=== PATIENT | male | born 1970 | race Caucasian/White ===

== ENCOUNTER 2018-10-28 16:14 | Observation (INO) ==
[2018-10-28 17:38] LABS: Basophils # 0.1 K/mcL (0.0-0.2); Basophils % 0.8 %; Eosinophils # 0.6 K/mcL (0.0-0.6); Eosinophils % 4.4 %; Hematocrit 45.9 % (37.5-50.1); Hemoglobin 15.6 g/dL (12.9-16.9); Immature Granulocytes % 0.4 % (0-4); Lymphocytes # 3.2 K/mcL (0.6-4.6); Lymphocytes % 25.4 %; Mean Corpuscular Hemoglobin 28.9 pg (28.0-33.3); Mean Corpuscular Volume 85.2 fL (83.0-100.0); Mean Platelet Volume 9.5 fL (9.4-12.4); Monocytes # 0.8 K/mcL (0.0-1.3); Monocytes % 6.7 %; Neutrophils # 7.7 K/mcL (1.6-8.9); Platelet Count 364 K/mcL (140-400); Red Blood Count 5.39 M/mcL (4.19-5.50); Red Cell Distribution Width 12.5 % (11.5-14.5); Segmented Neutrophils % 62.3 %
--- NOTE | 2018-10-28 17:41 | Emergency Department Note ---
Addendum entered and electronically signed by Mike Serrano DO 10/28/18 20:00: Patient did convert to normal sinus rhythm. Rate of 84. Normal axis. QTC of 389. Original Note: Disposition Clinical Impression: Atrial fibrillation with RVR, Renal insufficiency Disposition: Admitted As Inpatient Condition: Fair Referrals: Kailyn Goldberg CNP [Primary Care Provider] - Forms: ED Satisfaction Letter Time of Disposition: 18:28 Arrhythmia/Palpitations HPI - General Chief Complaint: ED Arrhythmia/Palpitations Stated Complaint: AFIB Time Seen by Provider: 10/28/18 17:31 Source: patient Mode of arrival: ambulatory Limitations: no limitations Nursing Notes Reviewed: Yes Vital Signs Reviewed: Yes - History of Present Illness HPI Narrative: 48-year-old male since for evaluation of A. fib. Patient states he has had intermittent palpitations which were PVCs over the past several months. States it became more persistent today around 1400. Denies any chest pain. Denies any nausea vomiting. Patient states he also had a productive cough over the past 2 months. Patient denies any fevers. Denies any abdominal pain. 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 Patient denies history of DVT or PE. Does note some lower extremity edema. No notable history of heart failure. No history thyroid or alcohol use. - Related Data Home Medications Medication Instructions Recorded Confirmed No Known Home Drugs 10/28/18 10/28/18 Allergies Allergy/AdvReac Type Severity Reaction Status Date / Time Penicillins Allergy Rash Verified 10/28/18 15:27 All systems ED: reviewed and negative except as stated. Constitutional: Denies: fever Cardiovascular: Denies: chest pain Respiratory: Reports: cough. Denies: dyspnea Gastrointestinal: Denies: abdominal pain, nausea, vomiting Past Medical History - Past Medical History Source: patient Medical history: Reports: no medical history Psychiatric history: Reports: no psych history - Social History Smoking Status: Never smoker Smokeless Tobacco Status: No Alcohol use: Reports: none Drug use: Reports: none Physical Exam - General Limitations: no limitations General appearance: alert, in no apparent distress, obese - Head Head exam: atraumatic, normocephalic, normal inspection - Eye Eye exam: Present: normal appearance, PERRL, EOMI - ENT ENT exam: normal exam, normal oropharynx, mucous membranes moist - Neck Neck exam: Present: normal inspection - Chest Chest inspection: Present: normal inspection - Respiratory Respiratory exam: Present: normal lung sounds bilaterally. Absent: respiratory distress - Cardiovascular Cardiovascular exam: Present: regular rate, normal rhythm. Absent: systolic murmur - Abdominal Exam Abdominal exam: Present: soft, Non-Tender. Absent: guarding, rebound - Extremities Exam Extremities exam: Present: normal inspection. Absent: pedal edema - Neurological Exam Neurological exam: Present: alert, oriented X3 - Skin Skin exam: Present: warm, dry, intact, normal color Course Course Narrative: Patient will get basic labs chest x-ray rate control with Cardizem. Patient has no recent echo. - Reevaluation(s) Reevaluation #1: Patient updated on plan of care. Patient's Cardizem drip at 5. Patient's heart rate 110. Patient's agreeable with admission. Time: 18:25 Vital Signs Temperature 98.6 F 10/28/18 16:37 Pulse Rate 83 10/28/18 16:37 Respiratory Rate 16 10/28/18 16:37 Blood Pressure 156/120 10/28/18 16:37 O2 Sat by Pulse Oximetry 96 10/28/18 16:37 Temperature 98.6 F 10/28/18 16:37 Pulse Rate 83 10/28/18 16:37 Respiratory Rate 16 10/28/18 16:37 Blood Pressure 156/120 10/28/18 16:37 O2 Sat by Pulse Oximetry 96 10/28/18 16:37 Oxygen Delivery Oxygen Delivery Room Air Arrhythmia/Palpitations - MDM Narrative Medical decision making narrative: Patient presented for concerns of palpitations found to be in A. fib. No formal diagnosis of A. fib. Patient was A. fib RVR started on Cardizem. Patient's d- dimer is negative. Electrolytes reviewed show some renal insufficiency elevated from past values. Patient will be admitted to hospital service for further evaluation and monitoring. Patient's Roverto Vasc is low patient was given an aspirin. - Lab Data Lab results reviewed: Yes I reviewed the patient's lab results. Result diagrams: 10/28/18 17:20 10/28/18 17:20 Lab Results 10/28/18 10/28/18 10/28/18 Range/Units 15:43 17:20 17:20 WBC 12.4 H (4.3-11.1) K/mcL RBC 5.39 (4.19-5.50) M/mcL Hgb 15.6 (12.9-16.9) g/dL Hct 45.9 (37.5-50.1) % MCV 85.2 (83.0-100.0) fL MCH 28.9 (28.0-33.3) pg MCHC 34.0 (31.6-35.5) g/dL RDW 12.5 (11.5-14.5) % Plt Count 364 (140-400) K/mcL MPV 9.5 (9.4-12.4) fL Immature Gran % 0.4 (0-4) % Seg Neutrophils % 62.3 % Lymphocytes % 25.4 % Monocytes % 6.7 % Eosinophils % 4.4 % Basophils % 0.8 % Neutrophils # 7.7 (1.6-8.9) K/mcL Lymphocytes # 3.2 (0.6-4.6) K/mcL Monocytes # 0.8 (0.0-1.3) K/mcL Eosinophils # 0.6 (0.0-0.6) K/mcL Basophils # 0.1 (0.0-0.2) K/mcL PT 11.0 (9.4-12.1) Seconds INR 1.0 D-Dimer 379 (0-500) ng/mLFEU Sodium 139 (136-145) mEq/L Potassium 4.1 (3.5-5.1) mEq/L Chloride 106 (98-107) mEq/L Carbon Dioxide 25 (23-29) mEq/L BUN 22 H (6-20) mg/dL Creatinine 1.38 H (0.70-1.30) mg/dL Est GFR ( Amer) > 60 (> 60) Est GFR (Non-Af Amer) 55 L (> 60) BUN/Creatinine Ratio 16 (6-26) Glucose 120 H (70-105) mg/dL Calculated Osmolality 293 (280-300) Calcium 10.3 (8.6-10.3) mg/dL Phosphorus 3.5 (2.7-4.5) mg/dL Magnesium 2.0 (1.6-2.6) mg/dL Troponin I < 0.03 (< 0.04) ng/mL B-Natriuretic Peptide (Less than 100) pg/mL TSH 3.120 (0.340-5.600) mcIU/mL 10/28/18 Range/Units 17:20 WBC (4.3-11.1) K/mcL RBC (4.19-5.50) M/mcL Hgb (12.9-16.9) g/dL Hct (37.5-50.1) % MCV (83.0-100.0) fL MCH (28.0-33.3) pg MCHC (31.6-35.5) g/dL RDW (11.5-14.5) % Plt Count (140-400) K/mcL MPV (9.4-12.4) fL Immature Gran % (0-4) % Seg Neutrophils % % Lymphocytes % % Monocytes % % Eosinophils % % Basophils % % Neutrophils # (1.6-8.9) K/mcL Lymphocytes # (0.6-4.6) K/mcL Monocytes # (0.0-1.3) K/mcL Eosinophils # (0.0-0.6) K/mcL Basophils # (0.0-0.2) K/mcL PT (9.4-12.1) Seconds INR D-Dimer (0-500) ng/mLFEU Sodium (136-145) mEq/L Potassium (3.5-5.1) mEq/L Chloride (98-107) mEq/L Carbon Dioxide (23-29) mEq/L BUN (6-20) mg/dL Creatinine (0.70-1.30) mg/dL Est GFR ( Amer) (> 60) Est GFR (Non-Af Amer) (> 60) BUN/Creatinine Ratio (6-26) Glucose (70-105) mg/dL Calculated Osmolality (280-300) Calcium (8.6-10.3) mg/dL Phosphorus (2.7-4.5) mg/dL Magnesium (1.6-2.6) mg/dL Troponin I (< 0.04) ng/mL B-Natriuretic Peptide 41 (Less than 100) pg/mL TSH (0.340-5.600) mcIU/mL - Radiology Data Radiology results reviewed: Yes I reviewed the patient's radiology results. Chest X-Ray 10/28/18 17:06 IMPRESSION: No acute cardiopulmonary process D/ / 10/28/2018 18:18:50 Gomez Badillo MD / [facility] Interpreting Provider: Gomez Badillo MD - EKG Data EKG attestation: Yes I reviewed and interpreted this EKG. Rate: tachycardia Rhythm: A.Fib Flushing/QRS: normal T wave inversions noted in: III, v1 Interpretation: no acute changes, nonspecific ST-T wave changes S.B.A.R. - Amina.Asa.Josh Situation: Demographics Background: Presenting Complaint Assessment: Vital Signs, Course and respsone to treatment, Patient/Family Expectation Recommendation: Barrier(s) to disposition, Recommendation based on pending studies, treatments, or consults S.B.A.RTobi Report Given to: Dr. Khoi Mojica Repor Time: 18:44
--- NOTE | 2018-10-28 17:49 | Emergency Department Note ---
Disposition Clinical Impression: Atrial fibrillation with RVR Disposition: Admitted As Inpatient Forms: ED Satisfaction Letter General Adult HPI - General Chief complaint: ED Arrhythmia/Palpitations Stated complaint: AFIB Time Seen by Provider: 10/28/18 17:31 Source: patient Mode of arrival: ambulatory Limitations: no limitations Nursing Notes Reviewed: Yes Vital Signs Reviewed: Yes - History of Present Illness HPI Narrative: Attestation note ED attending note I examined this patient and my medical decision-making was reviewed with the emergency medicine resident Dr. Mike Serrano . I agree with the documented findings, disposition and treatment plan as described except to the extent set forth below. Briefly: 48-year-old male smoker jeanette this had just palpitations in the past but no formal workup for the past 90 minutes after he spoke with family member was not a stressful conversation was an argument. Patient just a little bit tired feels his chest pounding. Smoking edema chest is clear EKG shows A. fib with RVR at [address]-T changes no acute ischemic changes note d. Patient is screening labs patient will undergo chemical cardioversion be admitted for A. fib with RVR new-onset. Pain Scale: 0 - Related Data Allergies Allergy/AdvReac Type Severity Reaction Status Date / Time Penicillins Allergy Rash Verified 10/28/18 15:27 Past Medical History - Past Medical History Medical history: Reports: no medical history Psychiatric history: Reports: no psych history - Social History Smoking Status: Never smoker Smokeless Tobacco Status: No Alcohol use: Reports: none Drug use: Reports: none Physical Exam - General Limitations: no limitations General appearance: alert, in no apparent distress Course Vital Signs Temperature 98.6 F 10/28/18 16:37 Pulse Rate 83 10/28/18 16:37 Respiratory Rate 16 10/28/18 16:37 Blood Pressure 156/120 10/28/18 16:37 O2 Sat by Pulse Oximetry 96 10/28/18 16:37 Temperature 98.6 F 10/28/18 16:37 Pulse Rate 83 10/28/18 16:37 Respiratory Rate 16 10/28/18 16:37 Blood Pressure 156/120 10/28/18 16:37 O2 Sat by Pulse Oximetry 96 10/28/18 16:37 Oxygen Delivery Oxygen Delivery Room Air Medical Decision Making - Lab Data Result diagrams: 10/28/18 17:20 Lab Results 10/28/18 Range/Units 17:20 WBC 12.4 H (4.3-11.1) K/mcL RBC 5.39 (4.19-5.50) M/mcL Hgb 15.6 (12.9-16.9) g/dL Hct 45.9 (37.5-50.1) % MCV 85.2 (83.0-100.0) fL MCH 28.9 (28.0-33.3) pg MCHC 34.0 (31.6-35.5) g/dL RDW 12.5 (11.5-14.5) % Plt Count 364 (140-400) K/mcL MPV 9.5 (9.4-12.4) fL Immature Gran % 0.4 (0-4) % Seg Neutrophils % 62.3 % Lymphocytes % 25.4 % Monocytes % 6.7 % Eosinophils % 4.4 % Basophils % 0.8 % Neutrophils # 7.7 (1.6-8.9) K/mcL Lymphocytes # 3.2 (0.6-4.6) K/mcL Monocytes # 0.8 (0.0-1.3) K/mcL Eosinophils # 0.6 (0.0-0.6) K/mcL Basophils # 0.1 (0.0-0.2) K/mcL
[2018-10-28] MEDS ORDERED: Aspirin 325 MG TABLET PO ONE (17:54)
[2018-10-28 17:59] LABS: BUN/Creatinine Ratio 16 (6-26); Blood Urea Nitrogen 22 mg/dL (6-20); Calcium 10.3 mg/dL (8.6-10.3); Carbon Dioxide 25 mEq/L (23-29); Chloride 106 mEq/L (98-107); Glucose 120 mg/dL (70-105); Osmolality,Calculated 293 (280-300); Potassium 4.1 mEq/L (3.5-5.1); Sodium 139 mEq/L (136-145); Troponin I < 0.03 ng/mL (< 0.04); eGFR For Non-African Americans 55 (> 60)
[2018-10-28 18:06] LABS: Phosphorous 3.5 mg/dL (2.7-4.5)
[2018-10-28] MEDS ORDERED: Famotidine 20 MG TABLET PO PRN (21:07)
[2018-10-28] MEDS ORDERED: Naloxone 0.4 MG/ML INJ IVP PRN (21:07)
[2018-10-28] MEDS ORDERED: *HR* Heparin 5,000 UNIT/ML VIAL IVP PRN ×2 (21:07)
[2018-10-28] MEDS ORDERED: Acetaminophen 325 MG TABLET PO PRN (21:07)
[2018-10-28] MEDS ORDERED: *HR* Heparin 5,000 UNIT/ML VIAL IVP ONE (21:07)
[2018-10-28] MEDS ORDERED: Heparin 25,000 UNIT/500 ML D5W 25,000 UNIT/500 ML BAG IVC SCH (21:15)
--- NOTE | 2018-10-28 21:35 | Internal Med History&Physical ---
Date of Encounter: 10/28/18 Time of Encounter: 20:25 Internal Medicine - H&P: HPI Chief complaint: plapitations/fluttering Admitted From: Emergency Dept Plans for Post Hospital Care: Home History of present illness: Mr. Davenport is a 48 year old male who presents with a sudden onset of fluttering and palpitations in his chest earlier today. Symptoms lasted over an hour, which prompted him to go the urgent care. He was then referred to ER for new onset atrial fibrillation with rapid ventricular response. In ER, patient was given Cardizem bolus and then drip with conversion back to sinus rhythm. He is now asymptomatic and feels "great". Because of the new onset atrial fibrillation and need for further workup, he was admitted to hospitalist service. Upon my assessment of the patient, patient is asymptomatic. He denies any chest pain or shortness of breath. He denied any chest pain or shortness breath ea rlier when he had the symptoms. He was feeling a little lightheaded, however, after about an hour's worth of symptoms. Upon further history, patient states he has these episodes of fluttering in his chest frequently, almost on a daily basis. He states they resolve usually within a few seconds. However, today's episode, lasted more than an hour and prompted him to seek evaluation and treatment. He has had a workup in the past for which he reported were PVCs. He had a stress test, echocardiogram, and cardiology consultation about 4 years ago. His stress test and echo were negative. He takes no chronic medications, does not drink alcohol, does not smoke, and does not use any supplements or energy drinks. He does drink a moderate amount of diet Pepsi per day, roughly 1-2 L per day. Other than obesity, he denies any other health problems. Upon further questioning, patient does report a history of snoring. He denies any history of sleep apnea. However, he states he cannot lie flat as he has problems snoring and breathing. He just sleeps on his side and has no problems with sleep. 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 He has a tough time falling asleep during the day and, as such, does not obtain adequate sleep hygiene. He does complain of a chronic cough since Megan time. He complains of productive sputum production, postnasal drip, sinus pressure, and ear pressure in his left ear. He denies any fevers, shortness of breath, hemoptysis, vomiting, or diarrhea. Otherwise, he has had no health problems other than the atrial fibrillation symptoms detailed above. Past Med Surg Social Fam HX - Past Medical History Attestation: Yes The following information was validated with the patient. Source: patient, old records reviewed Medical history: no medical history Psychiatric history: no psych history - Past Surgical History Surgical History: tonsilectomy - Social History Smoking Status: Never smoker Smokeless Tobacco Status: No Alcohol use: none Drug use: none Occupational status: employed Current living situation: Home, With Family Activity Level: Independent ambulation, Very active Recent Out of Country Travel Within the Last 8 Weeks: No - Family History Mother Living Status: Still Living Hx Family Cardiac Disorders: No Hx Family Respiratory Disorders: No Father Living Status: Cause of : alcoholism Hx Family Cardiac Disorders: No Hx Family Respiratory Disorders: No Internal Medicine - H&P: Meds No Known Home Drugs 10/28/18 [History] Allergy/AdvReac Type Severity Reaction Status Date / Time Penicillins Allergy Rash Verified 10/28/18 15:27 - Constitutional Constitutional: no chills, no fever(s), no night sweats - EENT Eyes: no blurry vision, no change in vision Ears: ear pain (left ear pressure), no tinnitus Nose, mouth and throat: nasal congestion, nasal discharge, post-nasal drip, sinus pressure, no sore throat - Cardiovascular Cardiovascular ROS IM: edema (dependent), irregular heart rhythm, lightheadedness, palpitations, no chest pain, no dyspnea, no dyspnea on exertion, no orthopnea, no paroxysmal nocturnal dyspnea, no syncope - Respiratory Respiratory: cough, change in phlegm color, no dyspnea, no hemoptysis, no dyspnea on exertion, no wheezing - Gastrointestinal Gastrointestinal: no abdominal pain, no diarrhea, no hematemesis, no chaya tochezia, no melena, no nausea, no vomiting - Genitourinary Genitourinary ROS male: no dysuria, no flank pain, no hematuria - Musculoskeletal Musculoskeletal ROS IM: no arthralgias, no back pain - Integumentary Integumentary IM: no rash, no jaundice - Neurological Neurological ROS: no disequilibrium, no dizziness, no focal weakness, no freque nt falls, no headache(s) - Psychiatric Psychiatric: no anxiety, no depression - Endocrine Endocrine IM: no cold intolerance, no heat intolerance, no polydipsia, no polyuria - Allergic/Immunologic Allergic/Immunologic: no wheezing, no GI upset with certain foods - Constitutional Vitals: Temp Pulse Resp BP Pulse Ox 98.3 F 80 18 147/105 98 10/28/18 20:56 10/28/18 20:56 10/28/18 20:56 10/28/18 20:56 10/28/18 20:56 General appearance: Present: cooperative, A&O X 3, pleasant, answers questions appropriately Exam: see below - Head Head exam: Present: atraumatic, normal inspection - Eye Eye exam: Present: EOMI, PERRL. Absent: scleral icterus Pupils: Present: normal accommodation - ENT ENT exam: Present: mucous membranes moist, normal external ear exam Additional comments: + frontal and maxillary sinus tenderness; + post-nasal drip - Neck Neck exam general surgery: Present: full ROM, supple. Absent: lymphadenopathy, tenderness, nuchal rigidity, thyromegaly - Respiratory Respiratory exam: Present: CTAB. Absent: chest wall tenderness, rales, respiratory distress, rhonchi, wheezes - Cardiovascular Cardiovascular exam: Present: RRR, +S1, +S2. Absent: diastolic murmur, systolic murmur, tachycardia - GI/Abdominal GI/Abdominal exam: Present: normal bowel sounds, soft. Absent: guarding, hepatomegaly, mass, rebound, splenomegaly, tenderness - Extremities Exam Extremities exam: Present: full ROM, normal capillary refill, pedal edema (trace), warm, radial pulses palpable and symmetrical. Absent: calf tenderness, joint swelling, tenderness - Back Exam Back exam: Absent: CVA tenderness (L), CVA tenderness (R) - Neurological Exam Neurological exam: Present: alert, CN II-XII intact, oriented X3, no focal deficits, strengths equal and symetr throughout - Psychiatric Psychiatric exam: Present: normal affect, normal mood - Skin Skin exam: Present: dry, intact, warm Internal Med - H&P Results - Labs CBC & Chem 7: 10/28/18 17:20 10/28/18 17:20 Labs: Short CBC 10/28/18 Range/Units 17:20 WBC 12.4 H (4.3-11.1) K/mcL Hgb 15.6 (12.9-16.9) g/dL Hct 45.9 (37.5-50.1) % Plt Count 364 (140-400) K/mcL Neutrophils # 7.7 (1.6-8.9) K/mcL BMP 10/28/18 17:20 Sodium 139 Potassium 4.1 Chloride 106 Carbon Dioxide 25 BUN 22 H Creatinine 1.38 H Glucose 120 H Calcium 10.3 Cardiac Enzymes 10/28/18 Range/Units 17:20 Troponin I < 0.03 (< 0.04) ng/mL - EKG Data -: EKG Interpreted by Myself - EKG Data Prior EKG available for review: yes EKG comments: 10/28/18 21:39 atrial fibrillation w RVR; repeat EKG NSR - Impressions ITS Impressions Chest X-Ray 10/28/18 17:06 IMPRESSION: No acute cardiopulmonary process D/ / 10/28/2018 18:18:50 Gomez Badillo MD / [facility] Interpreting Provider: Gomez Badillo MD - Diagnostic Studies Chest x-ray Status: image reviewed by me (negative) - Assessment and plan (1) Atrial fibrillation with RVR Current Visit: Yes Status: Resolved Assessment and plan: 1. New-onset; currently resolved and in NSR. 2. Continue low dose Cardizem drip and convert to oral dosing in the morning. 3. Will trend troponins, EKG's, order ECHO, and consult cardiology. 4. Will start ACS dose Heparin drip tonight. 5. TSH WNL. 6. Monitor electrolytes and correct as necessary. 7. Patient will likely need stress test in the near future. 8. Based upon history, I suspect he has had paroxysmal atrial fibrillation for several years, but it has never been formally diagnosed. (2) NEVAEH (acute kidney injury) Current Visit: Yes Status: Acute Assessment and plan: 1. Will hydrate with IVF and recheck renal function in the morning. 2. If renal function does not improve, will need nephrology consultation. (3) Suspected sleep apnea Current Visit: Yes Status: Suspected Assessment and plan: 1. Patient will need outpatient sleep study for suspected ARTHUR. (4) Sinusitis Current Visit: Yes Status: Acute Assessment and plan: 1. Will place on Omnicef. 2. Will need antibiotic Rx upon discharge to complete full course of treatment. Qualifiers: Sinusitis location: maxillary Chronicity: subacute Qualified Code(s): J01.00 - Acute maxillary sinusitis, unspecified (5) DVT prophylaxis Current Visit: Yes Status: Acute Assessment and plan: 1. Heparin drip as above.
[2018-10-28 21:36] LABS: Hematocrit 43.6 % (37.5-50.1); Hemoglobin 15.2 g/dL (12.9-16.9); Mean Corpuscular HGB Conc 34.9 g/dL (31.6-35.5); Mean Corpuscular Hemoglobin 29.5 pg (28.0-33.3); Mean Corpuscular Volume 84.5 fL (83.0-100.0); Mean Platelet Volume 9.2 fL (9.4-12.4); Platelet Count 359 K/mcL (140-400); Red Blood Count 5.16 M/mcL (4.19-5.50); Red Cell Distribution Width 12.5 % (11.5-14.5)
[2018-10-28] MEDS: 0.9 % Sodium Chloride 1,000 ML IVC SCH (21:52)
[2018-10-28] MEDS: Cefdinir 300 MG CAPSULE PO SCH (21:54)
[2018-10-28 21:57] LABS: INR 0.9; Prothrombin Time 10.6 Seconds (9.4-12.1)
[2018-10-29 00:26] LABS: Basophils # 0.1 K/mcL (0.0-0.2); Basophils % 0.8 %; Eosinophils # 0.5 K/mcL (0.0-0.6); Eosinophils % 4.5 %; Hematocrit 42.2 % (37.5-50.1); Hemoglobin 14.4 g/dL (12.9-16.9); Immature Granulocytes % 0.5 % (0-4); Lymphocytes # 3.6 K/mcL (0.6-4.6); Lymphocytes % 31.6 %; Mean Corpuscular HGB Conc 34.1 g/dL (31.6-35.5); Mean Corpuscular Volume 85.1 fL (83.0-100.0); Mean Platelet Volume 9.4 fL (9.4-12.4); Monocytes # 0.8 K/mcL (0.0-1.3); Monocytes % 6.8 %; Neutrophils # 6.4 K/mcL (1.6-8.9); Platelet Count 323 K/mcL (140-400); Red Blood Count 4.96 M/mcL (4.19-5.50); Red Cell Distribution Width 12.5 % (11.5-14.5); Segmented Neutrophils % 55.8 %
[2018-10-29 00:37] LABS: Alanine Aminotransferase 14 Units/L (7-52); Albumin 3.2 g/dL (3.5-5.7); Alkaline Phosphatase 94 Units/L (34-104); Aspartate Amino Transferase 15 Units/L (13-39); BUN/Creatinine Ratio 15 (6-26); Bilirubin,Total 0.3 mg/dL (0.3-1.0); Blood Urea Nitrogen 22 mg/dL (6-20); Calcium 9.4 mg/dL (8.6-10.3); Carbon Dioxide 24 mEq/L (23-29); Chloride 108 mEq/L (98-107); Chol/HDL Ratio 10.6 (0-4.9); Cholesterol 285 mg/dL (< 200); Globulin 3.2 g/dL (2.4-3.5); Glucose 121 mg/dL (70-105); HDL Cholesterol 27 mg/dL (40-59); Osmolality,Calculated 295 (280-300); Potassium 3.9 mEq/L (3.5-5.1); Sodium 140 mEq/L (136-145); Total Protein 6.4 g/dL (6.4-8.9); Triglycerides 401 mg/dL (< 150); eGFR For Non-African Americans 53 (> 60)
[2018-10-29] MEDS ORDERED: *HR* Enoxaparin 150 MG/ML SYRINGE SQ ONE (08:11)
[2018-10-29] MEDS ORDERED: 0.9 % Sodium Chloride 1,000 ML ONE (08:24)
[2018-10-29] MEDS: 0.9 % Sodium Chloride 1,000 ML IVC SCH (08:26)
[2018-10-29] MEDS: Cefdinir 300 MG CAPSULE PO SCH (10:01)
--- NOTE | 2018-10-29 10:21 | Cardiology Consult Note ---
<Lillie Rodriguez - Last Filed: 10/29/18 11:23> Date of Encounter: 10/29/18 Time of Encounter: 08:15 Assessment and Plan (1) Atrial fibrillation with RVR Current Visit: Yes Status: Acute Presented with Afib with RVR. He notes daily episode of irregular heart rate for the past 3 years. He has 1 liter of diet pepsi intake daily. 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 Since his presentation he was started on cardizem drip and it converted is rhythm back to sinus with rate controlled. This morning he is on cardizem drip, in sinus rhythm and heart rate of 67 this morning. -Switched to oral cardizem -CHADsVac score of 1, started baby aspirin -Follow outpatient with Dr. Diggs in 2 weeks -Cardiology will sign off at this time (2) HLD (hyperlipidemia) Current Visit: Yes Status: Acute His lipid panel shows triglyceride of 401 and LDL could not be calculated given his triglyceride was significantly elevated. He is not on any home antilipid medication. His heart risk score is 12.8% risk of heart disease or stroke in 10 years. The lipids were not fasting. Consider outpatient fasting lipids and adding antilipids as needed outpatient. Qualifiers: Hyperlipidemia type: mixed hyperlipidemia Qualified Code(s): E78.2 - Mixed hyperlipidemia Discussion w patient/family: The assessment and plan as outlined above was discussed with the patient and/or family members who expressed understanding and agreement. All questions were answered. Thank you for involving us in the care of your patient. Please call with any questions. History of Present Illness Consult date: 10/28/18 Requesting physician: Merrill Avendano Consult reason: new onset afib with RVR History of present illness: Mr. Davenport is a 48 year old male who presented to an urgent care due to episode of heart palpitations lasting one hour. He notes heart palpitations have been ongoing for the past 3 years and they occur daily and last a minute. He was noted to have afib with RVR and was sent to the ED subsequently. At presentation he was asymptomatic. He denied chest pain or shortness of breath. 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 He drinks 1 liter of pepsi daily and notes the irregular heart rhythm is not associated with any a ctivity or intake. He denies taking any supplements with caffeine. He denies diagnosis of sleep apnea but notes orthopnea and history of snoring. He notes chronic cough for the past 2 months. He denies fever, chills, nausea, emesis, shortness of breath or chest pain. Past Med Surg Social Fam HX - Past Medical History Medical history: no medical history Psychiatric history: no psych history - Past Surgical History Surgical History: tonsilectomy - Social History Smoking Status: Never smoker Smokeless Tobacco Status: No Alcohol use: none Drug use: none - Family History Father Living Status: Cause of : alcoholism Hx Family Cardiac Disorders: No Hx Family Respiratory Disorders: No Mother Living Status: Still Living Hx Family Cardiac Disorders: No Hx Family Respiratory Disorders: No Medications and Allergies Rivaroxaban [Xarelto] 20 mg PO DAILY #30 tablet 10/29/18 [Rx] Allergy/AdvReac Type Severity Reaction Status Date / Time Penicillins Allergy Rash Verified 10/28/18 15:27 All Systems Review: The remainder of the systems were reviewed and are negative - Constitutional Constitutional: no chills, no fever(s), no snoring, no weakness - Cardiovascular Cardiovascular: orthopnea, palpitations, no chest pain at rest, no chest pain with exertion, no dyspnea at rest, no dyspnea on exertion - Respiratory Respiratory: no cough, no dyspnea - Gastrointestinal Gastrointestinal: no abdominal pain, no dysphagia, no hematochezia, no melena - Musculoskeletal Musculoskeletal: no muscle weakness, no myalgias - Integumentary Integumentary: no erythema, no rash - Neurological Neurological: no focal weakness, no loss of vision, no numbness, no tingling Physical Examination Vital Signs, Last 4 Hours Temp Pulse Resp BP 10/29/18 06:28 97.7 F 67 16 148/95 General: Conversant, No Apparent Distress HEENT: Atraumatic, Normocephaly, Mucus Membranes Moist Neck: No JVD, Normal carotid pulses Cardiac: Reg Rate and Rhythm, Normal S1 and S2, No Murmur Lungs: Normal Breath Sounds, No Wheeze, Rales, Rhonchi Neuro: Alert and responsive, No focal deficits noted Abdomen: Soft, Non-Tender Skin: No rashes noted on visualized skin Musculoskeletal: No Chest Wall Tenderness Extremities: No Edema, Normal Pulses Results 10/29/18 00:07 10/29/18 00:07 Lab Results 10/28/18 10/28/18 10/28/18 15:43 17:20 17:20 WBC 12.4 H Hgb 15.6 Hct 45.9 Plt Count 364 INR 1.0 D-Dimer 379 Sodium 139 Potassium 4.1 Chloride 106 Carbon Dioxide 25 BUN 22 H Creatinine 1.38 H Glucose 120 H Calcium 10.3 Magnesium 2.0 Total Bilirubin AST ALT Alkaline Phosphatase Troponin I < 0.03 B-Natriuretic Peptide TSH 3.120 10/28/18 10/28/18 10/28/18 17:20 21:27 21:27 WBC 12.4 H Hgb 15.2 Hct 43.6 Plt Count 359 INR 0.9 D-Dimer Sodium Potassium Chloride Carbon Dioxide BUN Creatinine Glucose Calcium Magnesium Total Bilirubin AST ALT Alkaline Phosphatase Troponin I B-Natriuretic Peptide 41 TSH 10/29/18 10/29/18 10/29/18 00:07 00:07 00:07 WBC 11.4 H Hgb 14.4 Hct 42.2 Plt Count 323 INR D-Dimer Sodium 140 Potassium 3.9 Chloride 108 H Carbon Dioxide 24 BUN 22 H Creatinine 1.42 H Glucose 121 H Calcium 9.4 Magnesium 2.0 Total Bilirubin 0.3 AST 15 ALT 14 Alkaline Phosphatase 94 Troponin I < 0.03 B-Natriuretic Peptide TSH 10/29/18 04:20 WBC Hgb Hct Plt Count INR D-Dimer Sodium Potassium Chloride Carbon Dioxide BUN Creatinine Glucose Calcium Magnesium Total Bilirubin AST ALT Alkaline Phosphatase Troponin I < 0.03 B-Natriuretic Peptide TSH Consult Discharge Plan - Plan Referrals: Kailyn Goldberg, CONCESSION ATTENDANT [Primary Care Provider] - Prescriptions: Rivaroxaban [Xarelto] 20 mg PO DAILY #30 tablet <Skip Diggs - Last Filed: 10/29/18 11:52> Date of Encounter: 10/29/18 - Attending Attestation I examined this patient and my medical decision-making was reviewed with the Resident Physician. I agree with the documented findings, disposition and treatment plan as described except to the extent set forth below. New diagnosis PAF, currently in NSR. Would recommend op cardizem, echo, follow up as oupt. Assessment and Plan Discussion w patient/family: The assessment and plan as outlined above was discussed with the patient and/or family members who expressed understanding and agreement. All questions were answered. Thank you for involving us in the care of your patient. Please call with any questions. History of Present Illness History of present illness: Mr. Davenport is a 48 year old male All Systems Review: The remainder of the systems were reviewed and are negative Physical Examination Vital Signs, Last 4 Hours Temp Pulse Resp BP Pulse Ox 10/29/18 11:26 97.6 F 64 18 156/90 98 10/29/18 10:56 96 Results 10/29/18 00:07 10/29/18 00:07 Lab Results 10/28/18 10/28/18 10/28/18 15:43 17:20 17:20 WBC 12.4 H Hgb 15.6 Hct 45.9 Plt Count 364 INR 1.0 D-Dimer 379 Sodium 139 Potassium 4.1 Chloride 106 Carbon Dioxide 25 BUN 22 H Creatinine 1.38 H Glucose 120 H Calcium 10.3 Magnesium 2.0 Total Bilirubin AST ALT Alkaline Phosphatase Troponin I < 0.03 B-Natriuretic Peptide TSH 3.120 10/28/18 10/28/18 10/28/18 17:20 21:27 21:27 WBC 12.4 H Hgb 15.2 Hct 43.6 Plt Count 359 INR 0.9 D-Dimer Sodium Potassium Chloride Carbon Dioxide BUN Creatinine Glucose Calcium Magnesium Total Bilirubin AST ALT Alkaline Phosphatase Troponin I B-Natriuretic Peptide 41 TSH 10/29/18 10/29/18 10/29/18 00:07 00:07 00:07 WBC 11.4 H Hgb 14.4 Hct 42.2 Plt Count 323 INR D-Dimer Sodium 140 Potassium 3.9 Chloride 108 H Carbon Dioxide 24 BUN 22 H Creatinine 1.42 H Glucose 121 H Calcium 9.4 Magnesium 2.0 Total Bilirubin 0.3 AST 15 ALT 14 Alkaline Phosphatase 94 Troponin I < 0.03 B-Natriuretic Peptide TSH 10/29/18 04:20 WBC Hgb Hct Plt Count INR D-Dimer Sodium Potassium Chloride Carbon Dioxide BUN Creatinine Glucose Calcium Magnesium Total Bilirubin AST ALT Alkaline Phosphatase Troponin I < 0.03 B-Natriuretic Peptide TSH
[2018-10-29] MEDS ORDERED: Diltiazem CD (24hr) 120 MG CAPSULE PO SCH (11:15)
[2018-10-29] MEDS ORDERED: Aspirin 81 MG TAB.CHEW PO SCH (11:15)
--- NOTE | 2018-10-29 12:34 | Discharge Summary ---
- NOTES TO OUTPATIENT PROVIDER Notes to Outpatient Provider: A-Fib, newly on Cardizem and ASA 81, needs Sleep study Orders not resulted at time of discharge: Pending orders 10/29/18 11:00 Heparin anti-factor XA UFH [COAG] Timed Date of Encounter: 10/29/18 Time of Encounter: 12:30 - Discharge Diagnosis (1) Atrial fibrillation with RVR Priority: Primary Status: Acute Hospital course: Mr. Davenport is a 48 year old male w hx obesity, HTN, who presented with palpitations. He gets them once daily for about 2-3 seconds for the last 20 years. However, yesterday they lasted for >1 hour and he came to ED. He was witnessed in A-Fib RVR and was admitted on Cardizem gtt and actually spontaneously converted to NSR overnight. TTE was unremarkable. Switched to PO cardizem, started on ASA 81 (Chads score 1 for HTN), and discharged with cardio follow up. Advised he will need sleep study as outpatient, and we discussed lifestyle changes to include weight loss and low salt diet. Dx: A-Fib with RVR, HTN, obesity Follow up: cardio 2 weeks, talk to PCP for sleep study referral Pending: none Med changes: new ASA 81 daily, new cardizem 120 cr daily - Time Spent with Patient Total time spent providing and/or coordinating discharge services: Greater than 30 minutes - Discharge Medications Prescriptions: Aspirin 81 mg PO DAILY #30 tab.chew Cefdinir [Omnicef] 300 mg PO BID #6 capsule Diltiazem CD (24hr) [Cardizem CD] 120 mg PO DAILY #30 cap.er.24h Home Medications: Aspirin 81 mg PO DAILY #30 tab.chew 10/29/18 [Rx] Cefdinir [Omnicef] 300 mg PO BID #6 capsule 10/29/18 [Rx] Diltiazem CD (24hr) [Cardizem CD] 120 mg PO DAILY #30 cap.er.24h 10/29/18 [Rx] Allergies/Adverse Reactions: Allergy/AdvReac Type Severity Reaction Status Date / Time Penicillins Allergy Rash Verified 10/28/18 15:27 Date of admission: 10/28/18 19:44 Primary care physician: Kailyn Goldberg CNP Consults: 10/28/18 21:31 Consult to Cardiology [CONS] Routine Comment: Consulting Provider: Cardiology Deborah Reason for Consult: new onset atrial fibrillation/RVR; per history, it sounds paroxysmal for several years but he's never been formally diagnosed. Call Completed: No - Constitutional Vitals: Temp Pulse Resp BP Pulse Ox 97.6 F 64 18 156/90 98 10/29/18 11:26 10/29/18 11:26 10/29/18 11:26 10/29/18 11:26 10/29/18 11:26 General appearance: Present: cooperative, A&O X 3, pleasant, answers questions appropriately Exam: General: NAD, AAOx3, good eye contact, well appearing, obese Thoracic: Normal breath sounds b/l, no wheezing or crackles Cardio: Normal S1 and S2, regular rate and rhythm, no murmurs Abdomen: Soft, nontender, nondistended. Extremities: Warm, well perfused. DP pulses 2+ b/l. No edema. Skin: Intact. No rashes, bruises, or ulcers Neuro: Awake, fully oriented. Speech fluent - Patient Status Disposition: Home, Self-Care Condition: Good Functional capacity at discharge: independent ambulation Overall status at discharge: patient is back to baseline - Discharge Instructions Follow Up With: Skip Diggs MD [Partnered Physician] - (HFU: A-Fib, 2 weeks) Kailyn Goldberg CNP [Primary Care Provider] - (Needs sleep study, HTN, 4 weeks) - Diet and Activity Activity: resume usual activities as tolerated Diet: low salt diet
--- NOTE | 2018-10-29 13:44 | Event Note ---
Date of Encounter: 10/29/18 Time of Encounter: 13:45 - Cardiology Event Note ECHO: Impressions: LVEF 55%. Indeterminate diastolic function. Normal right ventricular structure and function. Mild mitral regurgitation. No pulmonary hypertension. Left Ventricular Wall Motion: Rest Echo Findings The basal inferior lateral wall was not visualized. All other wall segments showed normal motion Discharge pending. Cardiology signing off, reconsult as needed, follow-up arranged.
[2018-10-29 15:37] VITALS: BP 139/74
--- NOTE | 2018-10-29 20:45 | Electrocardiograph Report ---
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
--- NOTE | 2018-10-29 21:03 | Electrocardiograph Report ---
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
--- NOTE | 2018-11-03 16:40 | Electrocardiograph Report ---
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
== END 2018-10-29 16:00 | disposition home or self-care (01) ==
LOC: 2NENU 16:14 → EMEROOARM 16:14 → SUATTDRO 19:44 → 2NENU 20:18
PROVIDERS: ADMIT Internal Medicine; ATTEND Internal Medicine